=== PATIENT | male | born 1955 | race Caucasian/White ===

== ENCOUNTER 2020-10-05 14:35 | Emergency (ER) | payer BC ==
--- NOTE | 2020-10-05 15:24 | EDM.PDOC ---
ED HPI GENERAL MEDICAL PROBLEM - General Chief Complaint: Respiratory Problem Stated Complaint: COVID POSITIVE- OXYGEN IS 90 Time Seen by Provider: 10/05/20 15:10 Source of Information: Reports: Patient, RN. Denies: Old Records History Limitations: Reports: Other (no old records) - History of Present Illness INITIAL COMMENTS - FREE TEXT/NARRATIVE: 65 yo male presents with a concern about low oxygen levels. He had an outpatient Covid test last Sunday at [facility] that was + for Covid. He has been sick since last . He is not coughing, does not feel SOB, and is not febrile. He denies CHF, DM, morbid obesity, COPD, Asthma, or any other serious medical problems. He was told by friends that if he has an oximeter reading of 92% or less to go to the ER. He does not have a doctor so came here from his home in [place]. His also has Covid. Onset: Gradual Onset Date: 09/02/20 Duration: Day(s):, Constant Location: Reports: Generalized Quality: Reports: Other (no pain) Severity: Mild Improves with: Reports: None Worsens with: Reports: None Context: Reports: Other (See HPI) Associated Symptoms: Reports: Cough (occasional). Denies: Chest Pain, Diaphoresis, Fever/Chills, Shortness of Breath Treatments TRANSPORTATION DEPARTMENT HEAD: Reports: Other (see below) (none) - Related Data Allergies Allergy/AdvReac Type Severity Reaction Status Date / Time No Known Allergies Allergy Verified 10/05/20 15:08 Home Meds: Home Meds allopurinoL [Zyloprim] 200 mg PO DAILY 10/05/20 [History] Past Medical History - Past Surgical History GI Surgical History: Reports: Appendectomy Social & Family History - Tobacco Use Tobacco Use Status *Q: Never Tobacco User - Caffeine Use Caffeine Use: Reports: Coffee ED ROS GENERAL - Review of Systems Review Of Systems: See Below Constitutional: Reports: No Symptoms HEENT: Reports: No Symptoms Respiratory: Reports: Cough. Denies: Shortness of Breath, Wheezing, Sputum Cardiovascular: Reports: No Symptoms Endocrine: Reports: No Symptoms GI/Abdominal: Reports: No Symptoms : Reports: No Symptoms Musculoskeletal: Reports: No Symptoms Skin: Reports: No Symptoms Neurological: Reports: No Symptoms ED EXAM, GENERAL - Physical Exam Exam: See Below Exam Limited By: No Limitations General Appearance: Alert, WD/WN, No Apparent Distress Eye Exam: Bilateral Eye: Normal Inspection Ears: Normal External Exam, Normal Canal, Hearing Grossly Normal, Normal TMs Ear Exam: Bilateral Ear: Auricle Normal, Canal Normal Nose: Normal Inspection, No Blood Throat/Mouth: Normal Inspection, Normal Lips, Normal Oropharynx, Normal Voice, No Airway Compromise Head: Atraumatic, Normocephalic Neck: Normal Inspection Respiratory/Chest: No Respiratory Distress, Lungs Clear, Normal Breath Sounds, No Accessory Muscle Use Cardiovascular: Regular Rate, Rhythm, No Edema Back Exam: Normal Inspection Extremities: Normal Inspection, Normal Range of Motion, Non-Tender, No Pedal Edema Neurological: Alert, Oriented, CN II-XII Intact, Normal Cognition, No Motor/Sensory Deficits Psychiatric: Normal Affect, Normal Mood Skin Exam: Warm, Dry, Intact, Normal Color, No Rash Course - Vital Signs Last Recorded V/S: Last Vital Signs Temp 36.5 C 10/05/20 15:04 Pulse 77 10/05/20 15:04 Resp 18 10/05/20 15:04 BP 123/79 10/05/20 15:04 Pulse Ox 94 L 10/05/20 15:04 - Orders/Labs/Meds Orders: Active Orders 24 hr Category Date Time Status Nurse Communication: Isolation [RC] ASDIRECTED Care 10/05/20 15:03 Active Isolation [COMM] Routine Oth 10/05/20 15:03 Ordered Departure - Departure Time of Disposition: 15:24 Disposition: Home, Self-Care 01 Condition: Good Clinical Impression: COVID - Discharge Information *PRESCRIPTION DRUG MONITORING PROGRAM REVIEWED*: Not Applicable *COPY OF PRESCRIPTION DRUG MONITORING REPORT IN PATIENT CASSANDRA: Not Applicable Instructions: COVID-19: How to Protect Yourself and Others - CDC Referrals: PCP,None [Primary Care Provider] - Additional Instructions: Supportive care for your symptoms. Get established with a primary care provider. Isolate yourself for 5 more days to prevent spread. Recheck as needed here. Sepsis Event Note (ED) - Evaluation Sepsis Screening Result: No Definite Risk - Focused Exam Vital Signs: Vital Signs Temp Pulse Resp BP Pulse Ox 10/05/20 15:04 36.5 C 77 18 123/79 94 L - My Orders Last 24 Hours: My Active Orders 10/05/20 15:03 Nurse Communication: Isolation [RC] ASDIRECTED Isolation [COMM] Routine - Assessment/Plan Last 24 Hours: My Active Orders 10/05/20 15:03 Nurse Communication: Isolation [RC] ASDIRECTED Isolation [COMM] Routine
== END 2020-10-05 15:39 | disposition home or self-care (01) ==
LOC: JP.ED 14:35
DX: U07.1 COVID-19 (principal)
CPT/HCPCS: 99283

== ENCOUNTER 2023-07-16 10:49 | Emergency (ER) | payer MEDICARE | END 2023-07-16 12:28 | disposition home or self-care (01) | LOC: JP.ED 10:49 | DX: G45.9 Transient cerebral ischemic attack, unspecified (principal); I10 Essential (primary) hypertension; E78.00 Pure hypercholesterolemia, unspecified; I25.10 Atherosclerotic heart disease of native coronary artery without angina pectoris; Z95.5 Presence of coronary angioplasty implant and graft; Z79.899 Other long term (current) drug therapy | CPT/HCPCS: 99283 ==

== ENCOUNTER 2024-02-13 06:28 | Day surgery (SDC) | payer MEDICARE ==
[2024-02-13] MEDS ORDERED: Propofol 200 MG/20 ML SDV ONE (07:12)
[2024-02-13] MEDS ORDERED: fentaNYL 100 MCG/2 ML SDV ONE (07:12)
[2024-02-13] MEDS: Lactated Ringers 1,000 ML IV SCH (07:29)
== END 2024-02-13 09:25 | disposition home or self-care (01) ==
LOC: JP.SDS 06:28
PROVIDERS: ATTEND Surgery
DX: Z12.11 Encounter for screening for malignant neoplasm of colon (principal); D12.2 Benign neoplasm of ascending colon; D12.5 Benign neoplasm of sigmoid colon; K57.30 Diverticulosis of large intestine without perforation or abscess without bleeding; I25.10 Atherosclerotic heart disease of native coronary artery without angina pectoris
CPT/HCPCS: 45385; J2704; J3010; J7120

== ENCOUNTER 2024-10-28 10:50 | Emergency (ER) | payer MEDICARE ==
[2024-10-28 11:26] LABS: BASOPHILS ABSOLUTE AUTO 0.05 K/uL (0.00-0.10); BASOPHILS PERCENT AUTO 0.6 % (0.1-1.3); EOSINOPHILS ABSOLUTE AUTO 0.29 K/uL (0.00-0.40); EOSINOPHILS PERCENT AUTO 3.3 % (0.0-5.4); IMMATURE GRAN ABSOLUTE AUTO 0.07 K/uL (0.00-0.23); IMMATURE GRAN PERCENT AUTO 0.8 % (0.0-0.7); LYMPHOCYTES ABSOLUTE AUTO 1.93 K/uL (0.8-3.3); LYMPHOCYTES PERCENT AUTO 21.8 % (11.4-47.7); MONOCYTES ABSOLUTE AUTO 0.80 K/uL (0.20-0.90); MONOCYTES PERCENT AUTO 9.0 % (3.3-12.6); NEUTROPHILS ABSOLUTE AUTO 5.73 K/uL (1.0-7.6); NEUTROPHILS PERCENT AUTO 64.5 % (40.0-78.1); PLATELET COUNT,PLT 249 K/uL (130-375); RED BLOOD CELL COUNT 4.56 M/uL (4.14-5.76); WHITE BLOOD CELL COUNT,WBC 8.9 K/uL (3.2-11.0)
[2024-10-28 11:44] LABS: A/G RATIO 1.2 (1.2-2.2); ALANINE AMINOTRANSFERASE,ALT 50 U/L (12-78); ASPARTATE AMNIOTRANSFERASE,AST 28 U/L (15-37); BILIRUBIN TOTAL 0.9 mg/dL (0.2-1.0); BLOOD UREA NITROGEN,BUN 17 mg/dL (7-18); CARBON DIOXIDE,CO2 28 mmol/L (21-32); CHLORIDE,CL 105 mmol/L (100-108); CREATININE 1.1 mg/dL (0.8-1.3); EST CRCL DRUG DOSING (CG) 70.55 mL/min; ESTIMATED GFR 73 mL/min (>60); GLUCOSE RANDOM 108 mg/dL (74-106); POTASSIUM,K 4.4 mmol/L (3.6-5.2); PROTEIN TOTAL,TP 6.6 g/dL (6.4-8.2); SODIUM,NA 140 mmol/L (140-148)
[2024-10-28] MEDS: Diltiazem 25 MG/5 ML SDV IVPUSH ONE ×2 (12:20→12:52)
[2024-10-28 13:18] LABS: APPEARANCE,URINE CLEAR (CLEAR); GLUCOSE,URINE NEGATIVE (NEGATIVE); OCCULT BLOOD,URINE NEGATIVE (NEGATIVE)
[2024-10-28 13:24] LABS: SQUAMOUS EPITHELIAL CELLS,UR RARE /HPF; UROTHELIAL CELLS,URINE NOT SEEN /HPF
[2024-10-28] MEDS: Metoprolol Tartrate 5 MG/5 ML SDV IV ONE ×2 (14:28→14:55)
[2024-10-28] MEDS: Metoprolol Tartrate 5 MG/5 ML SDV IVPUSH ONE ×2 (16:21→17:29)
== END 2024-10-28 17:51 | disposition home or self-care (01) ==
LOC: JP.ED 10:50
DX: I48.91 Unspecified atrial fibrillation (principal); I10 Essential (primary) hypertension; E78.00 Pure hypercholesterolemia, unspecified; Z79.82 Long term (current) use of aspirin; Z79.899 Other long term (current) drug therapy; Z86.16 Personal history of COVID-19; Z90.49 Acquired absence of other specified parts of digestive tract
CPT/HCPCS: 36415; 71045; 80053; 81001; 85025; 93005; 96361; 96372; 96374; 96375; 96376; 99285; A9270; J1650; J3490; J7030; 93010; 99284